=== PATIENT | female | born 1935 | race Caucasian/White ===

== ENCOUNTER 2017-01-02 05:26 | Day surgery (SDC) | payer OTHER, BC ==
[2016-12-31 12:18] VITALS: BMI 32.4
[2017-01-02] MEDS ORDERED: PROPOFOL 20 ML ONE ×2 (11:21)
[2017-01-02] MEDS ORDERED: MIDAZOLAM HCL 2 MG/2 ML SINGLE DOSE VIAL ONE (11:21)
[2017-01-02] MEDS ORDERED: LIDOCAINE HCL 1%, 10 MG/ML (20ML VIAL) ONE (11:53)
[2017-01-02] MEDS ORDERED: ROPIVACAINE HCL 0.5% 30ML VIAL ONE (11:53)
[2017-01-02] MEDS ORDERED: ISOSULFAN BLUE 10 MG/ML VIAL SQ ONE (12:18)
[2017-01-02] MEDS ORDERED: ceFAZolin SODIUM 1 GM VIAL IVPB ONE (12:30)
[2017-01-02] MEDS ORDERED: LACTATED RINGERS SOLUTION 1,000 ML IV SCH (13:45)
[2017-01-02] MEDS ORDERED: ONDANSETRON 4 MG/2 ML VIAL IVPUSH PRN (13:45)
[2017-01-02] MEDS ORDERED: ACETAMINOPHEN 325 MG TABLET (FP) PO ONE (13:45)
[2017-01-02] MEDS ORDERED: ACETAMINOPHEN 325 MG TABLET (FP) ONE (14:56)
[2017-01-02 16:03] VITALS: BP 130/64; PULSE 64; TEMP 97.6
--- NOTE | 2017-01-03 16:14 | OP ---
DATE OF OPERATION: 01/02/2017 PREOPERATIVE DIAGNOSIS: Right breast cancer. POSTOPERATIVE DIAGNOSIS: Right breast cancer. PROCEDURE: Right breast wire localized lumpectomy and sentinel node biopsy. SURGEON: Gisel Egan MD ANESTHESIA: Paravertebral block and IV sedation. ESTIMATED BLOOD LOSS: Minimal. COMPLICATIONS: None. This was a sterile procedure. INDICATIONS: Patient presented with a screening mammogram and ultrasound that noted a density in the outer right breast. A needle biopsy showed invasive carcinoma. There was a second nodule noted on the right breast ultrasound at 11 o'clock and a third one at 10 o'clock. On repeat ultrasound done at [facility] yesterday, these were no longer noted. My recommendation was a right lumpectomy with sentinel node biopsy. The procedure was discussed with all the questions answered. PROCEDURE IN DETAIL: Patient was brought to [facility] and first taken to Nuclear Medicine where technetium sulfur colloid was injected by the radiologist as an intradermal injection in the outer right breast. We then brought her into the operating room, and after a paravertebral block, IV sedation and IV antibiotics, the right breast and axilla were prepped. Next, 5 mL of Isosulfan Blue dye were injected into the right subareolar plexus. The breast was then massaged for 5 minutes. The breast and axilla were then re-prepped and re-draped. A 4-cm incision was made in the right axilla, carried down to the clavipectoral fascia to identify a first lymph node, that was sentinel lymph node number 1, that was hot and blue. There was a second sentinel node that was hot but not blue. There were additional lymph nodes. One of them felt a little firm and probably likely a dominant node. This was sent as a right non-sentinel lymph node. There was no other blue dye radioactivity or pathological lymph nodes in the right axilla. Therefore, once hemostasis was assured, the right lumpectomy was performed. A radial incision was made in the outer right breast, and a wire was used as a guide to get down to the area of interest. This was excised en bloc and tagged with a long stitch lateral, short stitch superior. Grossly, I felt that was close posteriorly. Therefore, took a new posterior margin with a stitch at the old margin. The specimen was sent for radiograph that showed the clip and wire to be intact within the specimen. Once hemostasis was assured, the parenchyma was approximated with interrupted 2-0 Vicryl, skin approximated with interrupted 3-0 Vicryl and running 4-0 Prolene. The axilla was also closed in routine fashion with interrupted 3-0 Vicryl and running 4-0 Prolene. A sterile dressing with Steri-Strips and Tegaderm was applied. She tolerated the procedure well and was taken to recovery room in good condition. Chava [id number]
--- NOTE | 2017-01-07 15:59 | PATH ---
Surgical Pathology Report Patient Name: MAYDA MILLER [facility]. Rec. #: [id number] /Age/Gender: 1935 (Age: 81) / F Account: [id number] Location: [facility] SURGICAL Taken: 01/02/2017 Received: 01/02/2017 Reported: 01/07/2017 Physicians: Gisel Egan M.D. Specimen(s) Received A: RIGHT BREAST LUMPECTOMY B: SENTINEL LYMPH NODE, RIGHT AXILLARY #1 BLUE C: SENTINEL LYMPH NODE, RIGHT AXILLARY #2 HOT NOT BLUE D: NON-SENTINEL LYMPH NODE, RIGHT AXILLARY BREAST E: RGHT BREAST NEW POSTERIOR MARGIN, STITCH JARAMILLO OLD MARGIN Clinical History Invasive Final Diagnosis A. 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 NO DUCTAL CARCINOMA IN SITU OR LOBULAR CARCINOMA IN SITU IDENTIFIED. INVASIVE CARCINOMA IS 0.2 CM FROM THE INFERIOR MARGIN OF EXCISION. NO SKIN OR SKELETAL MUSCLE PRESENT. NO LYMPH VASCULAR INVASION IDENTIFIED. REMAINING BREAST TISSUE WITH FIBROCYSTIC CHANGES INCLUDING USUAL DUCTAL HYPERPLASIA (UDH), STROMAL FIBROSIS, AND DUCTAL DILATATION. B. LYMPH NODE, RIGHT AXILLARY SENTINEL NODE #1, EXCISION: ONE BENIGN LYMPH NODE (0/1) BY STANDARD HEMATOXYLIN AND EOSIN STAIN (MULTIPLE LEVELS EXAMINED) AND AE 1/3 IMMUNOSTAIN. C. LYMPH NODE, RIGHT AXILLARY SENTINEL NODE #2, EXCISION: ONE BENIGN LYMPH NODE (0/1) BY STANDARD HEMATOXYLIN AND EOSIN STAIN (MULTIPLE LEVELS EXAMINED) AND AE 1/3 IMMUNOSTAIN. D. LYMPH NODES, RIGHT AXILLARY, EXCISION: NO METASTATIC CARCINOMA IDENTIFIED IN 3 LYMPH NODES (0/3). E. RIGHT BREAST, POSTERIOR MARGIN, EXCISION: BENIGN BREAST TISSUE. Comment: The lesion shows a proliferation of neoplastic cells which in some places forms tubules and in other places solid sheets. Immunostains for p63 and smooth muscle myosin heavy chain performed and interpreted at [facility] show loss of the myoepithelial cell layer in the areas of carcinoma. Immunohistochemical stain for E-Cadherin performed and interpreted at [facility] show the neoplastic cells to be negative with E-Cadherin. Immunostain for p120 catenin performed [facility], [place], [place] ([id number]) and interpreted at [facility] show the neoplastic cells having cytoplasmic staining pattern. Although the histologic pattern shows ductal features, the immunohistochemical pattern is more consistent with lobular phenotype. Therefore, the carcinoma is best considered to have mixed ductal and lobular features (mixed type carcinoma). Comments Breast Invasive Carcinoma: Surgical Pathology Cancer Case Summary Based on AJCC/UICC TNM, 7th edition Procedure _X__ Excision with image-guided localization Lymph Node Sampling (select all that apply) (required only if lymph nodes are present in the specimen) _X__ [place] lymph node(s) _X__ Axillary dissection (partial or complete dissection) Specimen Laterality _X__ Right Tumor Size: Size of Largest Invasive Carcinoma Greatest dimension of largest focus of invasion over 1 mm: 14 mm Tumor Focality _X__ Single focus of invasive carcinoma Macroscopic and Microscopic Extent of Tumor Skin _X__ Invasive carcinoma does not invade into the dermis or epidermis Nipple _X__ Not applicable (excisions less than total mastectomy) Ductal Carcinoma In Situ (DCIS) _X__ No DCIS is present Histologic Type of Invasive Carcinoma : _X__ Invasive carcinoma with ductal and lobular features ("mixed type carcinoma") Histologic Grade: (Everardo Histologic Score) Tubular Differentiation _X__ Score 2 Nuclear Pleomorphism _X__ Score 2 Mitotic Rate _X__ Score 2 Overall Grade _X__ Grade 2: scores of 6 or 7 (moderately differentiated) Margins _X__ Margins uninvolved by invasive carcinoma (required only if residual invasive carcinoma is present in specimen) Distance from closest margin: 2 mm Specify margin: INFERIOR Lymph-Vascular Invasion _X__ Not identified Lymph Nodes Total number of lymph nodes examined (sentinel and nonsentinel): 5 Number of sentinel lymph nodes examined: 2 Number of lymph nodes with macrometastases ( > 2 mm): 0 Number of lymph nodes with micrometastases (>0.2 mm to 2 mm and/or >200cells):0 Number of lymph nodes with isolated tumor cells (=0.2 mm and =200 cells): 0 Extranodal Extension _X__ Not applicable Pathologic Staging (pTNM) Primary Tumor (Invasive Carcinoma): pT1c Regional Lymph Nodes (pN): pN0(i-) Biomarker Studies Results of ER and IA studies performed on this specimen (block A2)" at [facility] are as follows: ER (clone [id number] mouse monoclonal antibody by [employer]): >95% nuclear staining with strong intensity (Positive). IA (clone16 mouse monoclonal antibody by [employer]) : >95% nuclear staining with strong intensity (Positive). Results of Her2 (IHC) & Ki-67 studies performed on this specimen (block A2) at [place], [place] ([id number]) are as follows: Her2 IHC (EP3 from [employer], formerly known as [id number], using [employer] Polymer Refine detection kit): 1+ Negative Ki67: ~35% (High proliferative index) Positive and negative controls (internal if applicable) show appropriate results. Formalin fixation times are within current ASCO/CAP recommendations for ER, IA and Her2 testing. Electronically Signed Patrice Aguilar M.D. Gross Description A. Received fresh on an [employer] labeled "right breast lumpectomy," is a 6.2 x 4.7 x 2.0 cm irregular portion of fibroadipose tissue with a needle localization wire present. There is a short suture marking the superior aspect and a long suture marking the lateral aspect of the specimen, per the surgeon. There is no skin or nipple present. The specimen is inked as follows: Superior and lateral blue; inferior green; medial yellow; anterior red; deep black. The specimen is serially sectioned from lateral to medial. Sectioning reveals a 1.1 x 0.8 x 0.8 cm simms, indurated mass at 0.3 cm from the inferior margin and 0.7 cm from the superior margin. The remaining margins appear clear of the mass. The remaining breast parenchyma displays multifocal dense fibrous tissue. [employer] sections are submitted in 8 cassettes as follows: 1-2-one fullface section of mass each (each section displays superior and inferior margins; 2-7-[id number] uninvolved fibrous tissue, each with superior and inferior margins; 5-lateral margin; 6-medial margin; 7-anterior margin; 8-deep margin. Total formalin fixation time: Approximately 8 hours B. Received in formalin labeled "right axillary sentinel lymph node #1," is a 1.2 x 0.6 x 0.5 cm simms, irregular lymph node with attached fat. The specimen is bisected and entirely submitted in one cassette. C. Received in formalin labeled "right axillary sentinel lymph node #2," is a 2.1 x 0.8 x 0.5 cm simms, irregular lymph node with attached fat. The specimen is bisected and entirely submitted in 2 cassettes. D. Received in formalin labeled "non-sentinel lymph node right axillary," are 3 simms, irregular lymph nodes ranging from 0.4-1.6 cm in greatest dimension. The lymph nodes are bisected and entirely submitted in 4 cassettes as follows: 1-2-one whole bisected lymph node each; 3-4-one whole bisected lymph node. E. Received in formalin labeled "right breast new posterior margin," is a 3.2 x 2.5 x 1.0 cm irregular portion of fibroadipose tissue with a suture marking the old margin, per the surgeon. The new margin is inked blue and the specimen is serially sectioned. The specimen is entirely and sequentially submitted in 4 cassettes. 01/02/201701/02/2017
== END 2017-01-02 15:55 | disposition home or self-care (01) ==
LOC: JASU-SURG 05:26
PROVIDERS: ATTEND Surgery
PROC: 0HBT0ZZ Excision of Right Breast, Open Approach (ICD-10-PCS; principal; 2017-01-02 12:00)
DX: C50.211 Malignant neoplasm of upper-inner quadrant of right female breast (principal)
CPT/HCPCS: 19281; 78195-TC; 88307-TC; 88341-TC; 88342-TC; 94760; A9541